=== PATIENT | male | born 1945 | race Caucasian/White ===

== ENCOUNTER 2018-07-14 11:29 | Day surgery (SDC) | payer OTHER ==
[2018-07-12 13:53] VITALS: BP 135/67
[2018-07-12 13:53] LABS: BASOPHILS % (AUTO) 0.9 % (0.0-5.0); EOSINOPHILS % (AUTO) 2.1 % (0.0-8.0); HEMATOCRIT 44.4 % (42-54); LYMPHOCYTES % (AUTO) 23.8 % (21.0-51.0); MEAN CORPUSCULAR HEMOGLOBIN 33.3 pg (27.0-33.0); MEAN CORPUSCULAR HGB CONC 35.2 g/dL (32.0-36.0); MEAN CORPUSCULAR VOLUME 94.7 fL (79-99); MONOCYTES % (AUTO) 8.9 % (3.0-13.0); NEUTROPHILS % (AUTO) 64.3 % (40.0-77.0); NUCLEATED RED BLOOD CELLS 0.1 % (0.0-0.19); PLATELET COUNT (AUTO) 294 K/uL (130-400); RED BLOOD CELL COUNT(AUTO) 4.69 MIL/uL (4.50-6.20); WHITE BLOOD COUNT (AUTO) 6.3 K/uL (4.8-10.8)
[2018-07-12 13:57] LABS: APPEARANCE,URINE Clear (CLEAR); BILIRUBIN,URINE Negative (NEGATIVE); COLOR,URINE Yellow (YELLOW); GLUCOSE, URINE (UA) Negative (NEGATIVE); KETONES,URINE Negative (NEGATIVE); LEUKOCYTE ESTERASE ,URINE Negative (NEGATIVE); NITRATE,URINE Negative (NEGATIVE); OCCULT BLOOD,URINE Negative (NEGATIVE); PROTEIN,URINE Negative (NEGATIVE)
[2018-07-12 14:00] LABS: CREATININE 1.1 mg/dL (0.5-1.5)
[2018-07-12 14:07] LABS: INR 1.01 (0.85-1.15); PROTHROMBIN TIME 10.6 SEC (9.6-11.6)
[~2018-07-14] VITALS: Ht 179.1 cm; Wt 96.8 kg
[2018-07-14] VITALS (17 sets, daily range): BP systolic 118–159; BP diastolic 59–88
[~2018-07-14 11:29] MED LIST: ASPI-555 PO; ATOR10 PO; BERBERINE PO; CHOL500062 PO; FINA5TAB2 PO; GARL1000 PO; GLIM4TAB PO; INSU100I24 SQ; LEVO75TA4 PO; METF750T2 PO; METO50TA18 PO; MILK THISTLE 1000 MG PO; MULT-1192 PO; OMEG1CAP31 PO; RAMI10CA58 PO; SODIUM CHLORIDE 0.9% 500ML 500 ML IV SCH; TAMS-1 PO; TURMERIC 1000 MG PO; UBID100C10 PO; VICTOZA 1.8 MG PO; VITA1TAB22 PO; [UNRECOGNIZED DRUG - OTHER] PO
[2018-07-14] MEDS ORDERED: SODIUM CHLORIDE 0.9% 1000ML 1,000 ML IV ONE (11:40)
--- NOTE | 2018-07-14 12:13 | NUR ---
ASSESSMENT PT HERE FOR PROCEDURE. DENIES ANY DISCOMFORT AT THIS TIME. AT BEDSIDE.
[2018-07-14] MEDS ORDERED: IODIXANOL 320 MG/ML 100 ML VIAL ONE (13:22)
[2018-07-14] MEDS ORDERED: HEPARIN SODIUM 1000UNIT/ML 10ML VIAL ONE (13:22)
[2018-07-14] MEDS ORDERED: NITROGLYCERIN 5 MG/ML 10 ML VIAL IV ONE (13:22)
[2018-07-14] MEDS ORDERED: LIDOCAINE HCL 2% 20ML ONE (13:23)
[2018-07-14] MEDS ORDERED: MIDAZOLAM HCL 1 MG/ML 2ML VIAL ONE (13:47)
[2018-07-14] MEDS ORDERED: FENTANYL CITRATE PF 50 MCG/1 ML 2ML VIAL ONE (13:47)
[2018-07-14] MEDS ORDERED: SODIUM CHLORIDE 0.9% 1000ML 1,000 ML IV SCH (15:10)
[2018-07-14] MEDS ORDERED: NITROGLYCERIN 0.4 MG SL TAB SL PRN (15:15)
[2018-07-14] MEDS ORDERED: GLUCAGON 1MG KIT 1 MG ML IM PRN (15:15)
[2018-07-14] MEDS ORDERED: DEXTROSE 50%-WATER 50 ML DISP.SYRIN IV PRN (15:15)
[2018-07-14] MEDS ORDERED: CLOPIDOGREL BISULFATE 300 MG TAB ONE (15:15)
[2018-07-14] MEDS ORDERED: ASPIRIN 81MG TAB.CHEW ONE (15:15)
--- NOTE | 2018-07-14 15:40 | NUR ---
ASSESSMENT RECEIVED PT FROM MANAGER MATH PERSONNEL ZOILA COTTO. PT DOING WELL. DENIES ANY DISCOMFORT. 6 MAL[place] SHEATH TO RIGHT GROIN IN PLACE. SOFT TO TOUCH. NO BLEEDING, OOZING NOTED TO SITE. INSTRUCTED ON IMPORTANCE OF NOT MOVING RIGHT LEG OR LIFTING HEAD UP OFF OF BED. PT VERBALIZED UNDERSTANDING.
[2018-07-14] MEDS ORDERED: INSULIN HUMULIN R 100 UNIT/ML 3ML SQ SCH (16:30)
[2018-07-14] MEDS ORDERED: ATROPINE SULFATE 0.1 MG/ML 10 ML SYG IVP ONE (17:32)
--- NOTE | 2018-07-14 17:55 | NUR ---
SHEATH SHEATH DISCONTINUED TO RIGHT GROIN USING MANUAL PRESSURE AND DSTAT IN PLACE. SOFT TO TOUCH. NO BLEEDING, OOZING NOTED TO SITE. RE-EDUCATED ON IMPORTANCE OF NOT MOVING RIGHT LEG. BOTH PT AND VERBALIZED UNDERSTANDING.
--- NOTE | 2018-07-14 19:45 | NUR ---
DISCHARGE ORAL AND WRITTEN DISCHARGE INSTRUCTIONS GIVEN TO PT AND PTS . NO OTHER QUESTIONS AT THIS TIME. PRESCRIPTION GIVEN TO PTS . INSTRUCTIONS GIVEN ON SITE CARE.
[2018-07-15] MEDS ORDERED: CLOPIDOGREL BISULFATE 75 MG TAB PO SCH (09:00)
== END 2018-07-14 20:45 | disposition home or self-care (01) ==
LOC: DAH 11:29
PROVIDERS: ATTEND Internal Medicine Cardiovascular Disease
DX: I70.212 Atherosclerosis of native arteries of extremities with intermittent claudication, left leg (principal); Z79.899 Other long term (current) drug therapy; Z98.890 Other specified postprocedural states; I10 Essential (primary) hypertension; E11.9 Type 2 diabetes mellitus without complications; E78.5 Hyperlipidemia, unspecified; N40.0 Benign prostatic hyperplasia without lower urinary tract symptoms; Z79.84 Long term (current) use of oral hypoglycemic drugs; E66.9 Obesity, unspecified; E03.9 Hypothyroidism, unspecified; I25.10 Atherosclerotic heart disease of native coronary artery without angina pectoris; Z95.5 Presence of coronary angioplasty implant and graft; Z83.3 Family history of diabetes mellitus; Z82.49 Family history of ischemic heart disease and other diseases of the circulatory system; I45.10 Unspecified right bundle-branch block; Z79.01 Long term (current) use of anticoagulants
CPT/HCPCS: 36415; 37225; 71045; 75630; 80048; 81003; 82948 ×3; 85025; 85610; 85730; 93005; A4606; C1724; C1725 ×2; C1769 ×2; C1887; C1893 ×2; C1894 ×2; J1644 ×2; J2250; J3010; J3490 ×2; J7030; Q9967; 99156; 99157; J0461

== ENCOUNTER → 2018-11-15 | Outpatient (CLI) | payer OTHER ==
[~2018-11-15] MED LIST changes: -SODIUM CHLORIDE 0.9% 500ML 500 ML IV SCH
== END | disposition home or self-care (01) ==
LOC: SHCH 10:00
PROVIDERS: ATTEND Internal Medicine Cardiovascular Disease
DX: I70.292 Other atherosclerosis of native arteries of extremities, left leg (principal)
CPT/HCPCS: 93925

== ENCOUNTER → 2018-12-15 | Outpatient (CLI) | payer OTHER ==
[~2018-12-15] MED LIST changes: -METF750T2 PO; +METF750T46 PO
== END | disposition home or self-care (01) ==
LOC: SHCH 07:53
PROVIDERS: ATTEND Internal Medicine Cardiovascular Disease
DX: I11.0 Hypertensive heart disease with heart failure (principal); I20.9 Angina pectoris, unspecified
CPT/HCPCS: 93306

== ENCOUNTER → 2019-04-21 | Outpatient (CLI) | payer OTHER ==
--- NOTE | 2019-04-21 22:20 | NUR ---
JARDIANCE,MAGNESIUM,BCOMPLEX,VITAMIN D,LIPITOR,VASCEPA,SYNTHROID,TOPROL-XL,TRESIBA,VICTOZA,ASPIRIN Addendum: 04/21/19 at 2228 by ESSIE LOVING Amended: Links added.
== END | disposition home or self-care (01) ==
LOC: SLP 15:34
PROVIDERS: ATTEND Internal Medicine
DX: G47.33 Obstructive sleep apnea (adult) (pediatric) (principal)
CPT/HCPCS: 95810

== ENCOUNTER → 2019-04-28 | Outpatient (CLI) | payer OTHER | END | disposition home or self-care (01) | LOC: SLP 20:13 | PROVIDERS: ATTEND Internal Medicine | DX: G47.33 Obstructive sleep apnea (adult) (pediatric) (principal); I10 Essential (primary) hypertension; E11.9 Type 2 diabetes mellitus without complications | CPT/HCPCS: 95811 ==

== ENCOUNTER → 2019-07-03 | Outpatient (CLI) | payer OTHER | END | disposition home or self-care (01) | LOC: SHCH 11:22 | PROVIDERS: ATTEND Internal Medicine Cardiovascular Disease | DX: I73.9 Peripheral vascular disease, unspecified (principal) | CPT/HCPCS: 93925 ==

== ENCOUNTER → 2020-08-26 | Outpatient (CLI) | payer MEDICARE ==
[~2020-08-26] MED LIST changes: -ASPI-555 PO; +ASPI-556 PO
== END | disposition home or self-care (01) ==
LOC: SHCH 08:38
PROVIDERS: ATTEND Internal Medicine Cardiovascular Disease
DX: I70.293 Other atherosclerosis of native arteries of extremities, bilateral legs (principal)
CPT/HCPCS: 93925

== ENCOUNTER → 2023-10-29 | Outpatient (CLI) | payer MEDICARE ==
[~2023-10-29] MED LIST changes: +FINA-37 PO; -FINA5TAB2 PO; -GARL1000 PO; +GARL10002 PO; +IOHEXOL 350 MG/ML 100ML INFUS..BTL IV ONE; +VITA-427 PO; -VITA1TAB22 PO
== END | disposition home or self-care (01) ==
LOC: RAH 09:16
PROVIDERS: ATTEND Internal Medicine Cardiovascular Disease
DX: R07.9 Chest pain, unspecified (principal); I25.10 Atherosclerotic heart disease of native coronary artery without angina pectoris
CPT/HCPCS: 75574; Q9967

== ENCOUNTER 2023-12-27 06:53 | Day surgery (SDC) | payer MEDICARE ==
[2023-12-22 11:17] LABS: POTASSIUM 4.4 mmol/L (3.5-5.1)
[2023-12-22 11:21] VITALS: BP 108/63; PULSE 59; RESP 16; TEMP 98.2
[2023-12-22 11:22] LABS: INR 1.02 (0.85-1.15)
[2023-12-22 11:23] LABS: PARTIAL THROMBOPLASTIN TIME 27.3 SEC (26.3-35.5)
[2023-12-22 12:21] LABS: BASOPHILS # (AUTO) 0.04 K/uL (0.00-0.20); BASOPHILS % (AUTO) 0.5 % (0.0-5.0); EOSINOPHILS # (AUTO) 0.08 K/uL (0.00-0.70); EOSINOPHILS % (AUTO) 0.9 % (0.0-8.0); HEMATOCRIT 47.6 % (42-54); IMMATURE GRANULOCYTE ABSOLUTE 0.04 K/uL (0-1); LYMPHOCYTES # (AUTO) 1.1 K/uL (1.0-4.8); LYMPHOCYTES % (AUTO) 12.9 % (21.0-51.0); MEAN CORPUSCULAR HEMOGLOBIN 32.9 pg (27.0-33.0); MEAN CORPUSCULAR HGB CONC 34.5 g/dL (32.0-36.0); MEAN CORPUSCULAR VOLUME 95.6 fL (79-99); MONOCYTES # (AUTO) 0.8 K/uL (0.1-1.0); MONOCYTES % (AUTO) 9.4 % (3.0-13.0); NEUTROPHILS # (AUTO) 6.7 K/uL (1.8-7.7); NEUTROPHILS % (AUTO) 75.8 % (40.0-77.0); PLATELET COUNT (AUTO) 262 K/uL (130-400); RED BLOOD CELL COUNT(AUTO) 4.98 MIL/uL (4.50-6.20); RED CELL DISTRIBUTION WIDTH 12.7 % (11.0-15.5); WHITE BLOOD COUNT (AUTO) 8.8 K/uL (4.8-10.8)
[~2023-12-27] VITALS: Ht 177.8 cm; Wt 80.6 kg
[2023-12-27] VITALS (15 sets, daily range): BP systolic 117–150; BP diastolic 54–91; PULSE 56–69; RESP 16–18; TEMP 97.1–98.2
[~2023-12-27 06:53] MED LIST changes: +ASCO500C18 PO; -ATOR10 PO; +ATOR10TA PO; -BERBERINE PO; +CHOL2000 PO; -CHOL500062 PO; +COQ10 PO; +CYAN250010 PO; +EMPA25TA PO; +FAMO40TA7 PO; -GARL10002 PO; -GLIM4TAB PO; +ICOS1CAP PO; -INSU100I24 SQ; +INSU300I SQ; -IOHEXOL 350 MG/ML 100ML INFUS..BTL IV ONE; +LEVO150T11 PO; +MAGN500C4 PO; +METF-446 PO; -METF750T46 PO; -METO50TA18 PO; +METO50TA9 PO; -MILK THISTLE 1000 MG PO; +MILK THISTLE PO; -MULT-1192 PO; -OMEG1CAP31 PO; +TESTOSTERONE IM; -TURMERIC 1000 MG PO; -UBID100C10 PO; -VICTOZA 1.8 MG PO; -VITA-427 PO; +VITA100C27 PO; +VITAMIN B COMPLEX PO; -[UNRECOGNIZED DRUG - OTHER] PO; +mvi PO; +ozempic SQ
[2023-12-27] MEDS: 0.9%NACL 1000ML 1,000 ML IV ONE (07:30)
[2023-12-27] MEDS ORDERED: LIDOCAINE HCL 400MG/20ML VIAL ONE (09:21)
[2023-12-27] MEDS ORDERED: BIVALIRUDIN 250 MG/VIAL IV ONE ×2 (09:21→11:06)
[2023-12-27] MEDS ORDERED: IOHEXOL 350 MG/ML 100ML INFUS..BTL IV ONE (09:21)
[2023-12-27] MEDS ORDERED: MIDAZOLAM HCL 1 MG/ML 2ML VIAL ONE ×3 (09:21→11:50)
[2023-12-27] MEDS ORDERED: FENTanyl CITRate PF 50 MCG/1 ML 2ML VIAL ONE ×2 (09:21→10:42)
[2023-12-27] MEDS ORDERED: HEParin 10,000 UNIT/10ML (1,000 UNIT/ML) VIAL ONE (09:21)
[2023-12-27] MEDS ORDERED: HEParin-NS 1,000 UNIT/500 ML 1,000 ML IV ONE (09:22)
[2023-12-27] MEDS ORDERED: NITROGLYCERIN 50MG VIAL ONE (09:22)
[2023-12-27] MEDS ORDERED: ATROPINE 1MG SYG IVP ONE (09:54)
[2023-12-27] MEDS ORDERED: HEParin-NS 1,000 UNIT/500 ML 500 ML IV ONE (10:47)
[2023-12-27] MEDS ORDERED: IOHEXOL-350 75 ML VIAL IV ONE (11:56)
[2023-12-27] MEDS ORDERED: cloPIDOgrel 300MG TAB ONE (12:24)
[2023-12-27] MEDS ORDERED: ASPIRIN 325MG EC TAB PO ONE (12:25)
[2023-12-27] MEDS ORDERED: GLUCAGON 1MG KIT 1 MG ML IM PRN (13:00)
[2023-12-27] MEDS ORDERED: NITROGLYCERIN 0.4 MG SL TAB SL PRN (13:00)
[2023-12-27] MEDS ORDERED: DEXTROSE 50%-WATER 50 ML DISP.SYRIN IV PRN (13:00)
[2023-12-27] MEDS ORDERED: hydrALAZine 20MG/ML VIAL IV PRN (13:00)
[2023-12-27] MEDS: 0.9%NACL 1000ML 1,000 ML IV SCH (13:25)
[2023-12-27] MEDS ORDERED: INSULIN humuLIN R 100 UNIT/ML 3ML SQ SCH (16:30)
[2023-12-28] MEDS ORDERED: cloPIDOgrel 75MG TAB PO SCH (09:00)
== END 2023-12-27 18:51 | disposition home or self-care (01) ==
LOC: DAH 06:53
PROVIDERS: ATTEND Internal Medicine Cardiovascular Disease
DX: R07.9 Chest pain, unspecified (principal); R06.09 Other forms of dyspnea; I25.110 Atherosclerotic heart disease of native coronary artery with unstable angina pectoris; E78.5 Hyperlipidemia, unspecified; R94.39 Abnormal result of other cardiovascular function study; I11.9 Hypertensive heart disease without heart failure; E11.51 Type 2 diabetes mellitus with diabetic peripheral angiopathy without gangrene; I83.90 Asymptomatic varicose veins of unspecified lower extremity; E66.9 Obesity, unspecified; E03.9 Hypothyroidism, unspecified; Z95.5 Presence of coronary angioplasty implant and graft; I45.10 Unspecified right bundle-branch block; Z79.82 Long term (current) use of aspirin; Z79.899 Other long term (current) drug therapy
CPT/HCPCS: 80048; 85025; 85610; 85730; 36415; 71045; 93005; 92972; 82948 ×2; 93460; C9600; C1761; C1769 ×7; C1887 ×6; C1894 ×4; C1725 ×3; C1874; C1760; J3010 ×2; J3490 ×2; J7030; J0461; J2250 ×3; J1644 ×2; J0583 ×2; Q9967 ×2; A4215; A6402; A4657; A4222; A4221; A4663; A4216; A4606; Q9965 ×2; A4223 ×3; 93456; 99156; 99157